=== PATIENT | male | born 1990 | race Caucasian/White ===

== ENCOUNTER 2020-09-27 03:19 | Emergency (ER) | payer OTHER ==
[2020-09-27 03:27] VITALS: TEMP 97.8
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
[2020-09-27 05:19] VITALS: RESP 15
[2020-09-27 06:44] VITALS: BP 110/68; PULSE 93
== END 2020-09-27 06:42 | disposition home or self-care (01) ==
LOC: EC 03:19
DX: F19.10 Other psychoactive substance abuse, uncomplicated (principal); R10.9 Unspecified abdominal pain; R51.9 Headache, unspecified; M25.512 Pain in left shoulder; M25.511 Pain in right shoulder; F17.200 Nicotine dependence, unspecified, uncomplicated; V49.50XA Passenger injured in collision with unspecified motor vehicles in traffic accident, initial encounter
CPT/HCPCS: 82075; 99283